=== PATIENT | female | born 1935 | race Caucasian/White ===

== ENCOUNTER 2019-08-09 10:43 | Emergency (ER) | payer OTHER ==
[~2019-08-09] VITALS: Ht 157.5 cm; Wt 74.8 kg
[~2019-08-09 10:43] MED LIST: COZAAR100 MG PO; LISINOPRIL5 MG
[2019-08-09] MEDS ORDERED: VITAMIN B122500 MCG PO (10:50)
[2019-08-09] MEDS ORDERED: FISH OIL 1,0001 EAC9 PO (10:50)
[2019-08-09] MEDS ORDERED: CALCIUM500 MG PO (10:50)
[2019-08-09 12:07] VITALS: BP 131/51
[2019-08-09 12:26] LABS: ABSOLUTE NEUTROPHILS 5.6 thou/uL (1.4-8.2); BASOPHILS 0.3 % (0.0-2.0); EOSINOPHILS 1.1 % (0.0-3.0); HEMATOCRIT 42.8 % (37.0-47.0); HEMOGLOBIN 14.5 gm/dL (12.0-15.0); LYMPHOCYTES 16.9 % (24.0-44.0); MCH 32.2 pg (26.0-34.0); MCV 94.7 fL (80.0-100.0); MONOCYTES 5.5 % (1.0-8.0); PLATELET COUNT 264 thou/uL (150-400); POLYS 76.2 % (36.0-66.0); RBC 4.52 mil/uL (4.20-5.00); RDW 13.3 % (10.5-14.5); WBC 7.3 thou/uL (4.0-11.0)
[2019-08-09 12:29] LABS: CALCIUM 8.8 mg/dL (8.5-10.1); CREATININE 0.9 mg/dL (0.6-1.0)
== END 2019-08-09 12:07 | disposition home or self-care (01) ==
LOC: ER 10:43
PROVIDERS: Emergency Medicine
DX: G62.9 Polyneuropathy, unspecified (principal); I10 Essential (primary) hypertension; M13.862 Other specified arthritis, left knee; M13.861 Other specified arthritis, right knee; Z91.011 Allergy to milk products; Z91.013 Allergy to seafood; Z88.1 Allergy status to other antibiotic agents; Z79.899 Other long term (current) drug therapy